=== PATIENT | female | born 1950 | race Caucasian/White ===

== ENCOUNTER → 2017-04-27 | Outpatient (CLI) | payer BC ==
--- NOTE | 2017-04-27 15:21 | XR ---
EXAMINATION TYPE: XR shoulder complete RT DATE OF EXAM: 04/27/2017 CLINICAL HISTORY: pain TECHNIQUE: Three views of the right shoulder are obtained. COMPARISON: None FINDINGS: There is no acute fracture/dislocation evident. The acromioclavicular and glenohumeral soco int spaces appear within normal limits. The visualized ribs are intact and unremarkable. IMPRESSION: 1. There is no acute fracture or dislocation. ICD 10 NO FRACTURE, INITIAL EVALUATION
--- NOTE | 2017-04-27 15:22 | XR ---
EXAMINATION TYPE: XR cervical spine comp DATE OF EXAM: 04/27/2017 CLINICAL HISTORY: pain COMPARISON: NONE TECHNIQUE: Frontal, lateral, oblique, swimmers, and open mouth view of the cervical spine are obtaine d. FINDINGS: Severe degenerative disc space narrowing and spondylosis extending from C5-6 through C7-T1. Ventral and dorsal spondylosis identified. Mild bilateral foraminal encroachment at C5-6. No evidenc e of fracture or malalignment. IMPRESSION: No acute fracture or dislocation is seen in the cervical spine. Advanced degenerative ch anges as discussed. ICD 10 NO FRACTURE, INITIAL EVALUATION
--- NOTE | 2017-05-01 09:13 | MM ---
Reason for exam: screening (asymptomatic). Last mammogram was performed 1 year and 2 months ago. History: Patient is postmenopausal. Family history of breast cancer in maternal grandmother. Physical Findings: A clinical breast exam by your physician is recommended on an annual basis and results should be correlated with mammographic findings. MG Screening Mammo w CAD Bilateral CC and MLO view(s) were taken. Prior study comparison: February 22, 2016, bilateral MG screening mammo w CAD. February 17, 2015, bilateral MG screening mammo w CAD. There are scattered fibroglandular densities. No significant changes when compared with prior studies. ASSESSMENT: Negative, BI-RAD 1 RECOMMENDATION: Routine screening mammogram of both breasts in 1 year.
== END | disposition home or self-care (01) ==
LOC: RADMAMWWP 14:48
PROVIDERS: ATTEND Internal Medicine
DX: M47.812 Spondylosis without myelopathy or radiculopathy, cervical region (principal); M25.511 Pain in right shoulder; Z12.31 Encounter for screening mammogram for malignant neoplasm of breast; M54.2 Cervicalgia
CPT/HCPCS: 72050; 73030; G0202

== ENCOUNTER → 2017-06-13 | Outpatient (CLI) | payer BC ==
--- NOTE | 2017-06-14 11:02 | ECHOF ---
Referral Reason:Edema R60.0 MEASUREMENTS -------- HEIGHT: 160.0 cm WEIGHT: 77.1 kg BP: RVIDd: 2.6 cm (< 3.3) IVSd: 0.9 cm (0.6 - 1.1) LVIDd: 3.6 cm (3.9 - 5.3) LVPWd: 0.9 cm (0.6 - 1.1) IVSs: 1.3 cm LVIDs: 2.6 cm LVPWs: 1.3 cm LA Diam: 3.1 cm (2.7 - 3.8) LAESV Index (A-L): 19.04 ml/m Ao Diam: 2.6 cm (2.0 - 3.7) AV Cusp: 1.7 cm (1.5 - 2.6) LA Diam: 3.6 cm (2.7 - 3.8) MV EXCURSION: 11.800 mm (> 18.000) MV EF SLOPE: 52 mm/s (70 - 150) EPSS: 0.2 cm MV E Dewayne: 0.60 m/s MV DecT: 317 ms MV A Dewayne: 0.80 m/s MV E/A Ratio: 0.75 RAP: 5.00 mmHg RVSP: 12.23 mmHg FINDINGS -------- Sinus rhythm. This was a technically good study. LV size, wall thickness and systolic function are normal, with an EF greater than 55%. The left mayela tricular size is normal. Overall left ventricular systolic function is normal with, an EF between 5 5 - 60 %. The right ventricle is normal in size. Normal LA size by volume 22+/-6 ml/m2. The right atrial size is normal. The aortic valve is trileaflet, and appears structurally normal. No aortic stenosis or regurgitation. Mild mitral regurgitation is present. Mild tricuspid regurgitation present. There is no evidence of pulmonary hypertension. The right v entricular systolic pressure, as measured by Doppler, is 12.23mmHg. There is no pulmonic regurgitation present. The aortic root size is normal. There is no pericardial effusion. CONCLUSIONS -------- 1. LV size, wall thickness and systolic function are normal, with an EF greater than 55%. 2. The left ventricular size is normal. 3. Overall left ventricular systolic function is normal with, an EF between 55 - 60 %. 4. The aortic valve is trileaflet, and appears structurally normal. No aortic stenosis or regurgitati on. 5. Mild mitral regurgitation is present. 6. Mild tricuspid regurgitation present. 7. There is no evidence of pulmonary hypertension. 8. The right ventricular systolic pressure, as measured by Doppler, is 12.23mmHg. 9. There is no pulmonic regurgitation present. 10. The aortic root size is normal. 11. There is no pericardial effusion. SHEET CUTTER: Tierney Ramirez RDCS
== END | disposition home or self-care (01) ==
LOC: RADECHMAIN 14:22
PROVIDERS: ATTEND Internal Medicine
DX: I08.1 Rheumatic disorders of both mitral and tricuspid valves (principal)
CPT/HCPCS: 93306

== ENCOUNTER 2018-04-11 03:42 | Emergency (ER) | payer MEDICARE, BC ==
[2018-04-11 04:00] VITALS: BP 162/92; PULSE 103; RESP 20; TEMP 98.2
[2018-04-11] MEDS ORDERED: SODIUM CHLORIDE 0.9% 1,000 ML IV STA (04:09)
[2018-04-11 04:54] LABS: Basophils # (A) 0.1 k/uL (0-0.2); Basophils % (A) 1 %; Eosinophils # (A) 0.4 k/uL (0-0.7); Eosinophils % (A) 5 %; HCT 44.5 % (34.0-46.0); HGB 14.3 gm/dL (11.4-16.0); Lymphocytes # (A) 1.6 k/uL (1.0-4.8); Lymphocytes % (A) 19 %; MCH 31.1 pg (25.0-35.0); MCV 96.9 fL (80.0-100.0); Mean Platelet Volume 6.7; Monocytes # (A) 0.5 k/uL (0-1.0); Monocytes % (A) 6 %; Neutrophils # (A) 5.7 k/uL (1.3-7.7); Neutrophils % (A) 68 %; Platelet Count 296 k/uL (150-450); RBC 4.59 m/uL (3.80-5.40); RDW 12.5 % (11.5-15.5); WBC 8.4 k/uL (3.8-10.6)
[2018-04-11 05:04] LABS: INR 1.1 (<1.2); Partial Thromboplastin Time 23.4 sec (22.0-30.0); Prothrombin Time 10.3 sec (9.0-12.0)
[2018-04-11 05:13] LABS: ALT 29 U/L (9-52); AST 23 U/L (14-36); Albumin 4.1 g/dL (3.5-5.0); Alcohol <10 mg/dL; Alkaline Phosphatase 78 U/L (38-126); Anion Gap 12 mmol/L; Blood Urea Nitrogen 31 mg/dL (7-17); Calcium 9.1 mg/dL (8.4-10.2); Carbon Dioxide 21 mmol/L (22-30); Chloride 111 mmol/L (98-107); Glucose 93 mg/dL (74-99); Potassium 4.4 mmol/L (3.5-5.1); Sodium 144 mmol/L (137-145); Total Bilirubin 0.2 mg/dL (0.2-1.3); Total Protein 6.7 g/dL (6.3-8.2)
[2018-04-11 05:28] LABS: Appearance,Urine Clear (Clear); Bilirubin,Urine Negative (Negative); Blood,Urine Negative (Negative); Color,Urine Yellow; Glucose,Urine (UA) Negative (Negative); Ketones,Urine Negative (Negative); Leukocyte Esterase,Urine Negative (Negative); Nitrite,Urine Negative (Negative); PH, Urine 5.5 (5.0-8.0); Protein,Urine Negative (Negative); Specific Gravity,Urine 1.025 (1.001-1.035); Urobilinogen,Urine <2.0 mg/dL (<2.0)
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
--- NOTE | 2018-04-11 05:37 | XR ---
EXAMINATION TYPE: XR pelvis AP view DATE OF EXAM: 04/11/2018 COMPARISON: NONE HISTORY: Pain TECHNIQUE: Single view FINDINGS: Pelvic ring is intact. Proximal femurs and hip joints appear normal. Sacroiliac joints appe ar normal. There are phleboliths in the pelvis. IMPRESSION: Negative exam. No evidence of traumatic injury.
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
[2018-04-11 05:43] LABS: Amphetamine Screen,Urine Not Detected (NotDetected); Barbiturate Screen,Urine Not Detected (NotDetected); Benzodiazepines Screen,Urine Not Detected (NotDetected); Cocaine Screen,Urine Not Detected (NotDetected); Methadone Screen, Urine Not Detected (NotDetected); Opiate Screen,Urine Not Detected (NotDetected); Oxycodone Screen, Urine Not Detected (NotDetected); Phencyclidine Screen,Urine Not Detected (NotDetected); Tricyclic Antidepressant,Urine Not Detected (NotDetected); Urn Cannabinoid Scrn Not Detected (NotDetected)
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
== END 2018-04-11 06:55 | disposition home or self-care (01) ==
LOC: EC 03:42
DX: S00.83XA Contusion of other part of head, initial encounter (principal); S10.93XA Contusion of unspecified part of neck, initial encounter; E07.9 Disorder of thyroid, unspecified; Z79.899 Other long term (current) drug therapy; Y04.2XXA Assault by strike against or bumped into by another person, initial encounter
CPT/HCPCS: 99284; 96360; 36415; 93005; 86900; 86901; 80053; 84484; 85025; 85610; 85730; 86850; 81003; 80306; 72170; 71045; 72125; 70450; 70498; G0480; Q9967; 80320

== ENCOUNTER → 2019-12-17 | Outpatient (CLI) | payer MEDICARE ==
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
== END | disposition home or self-care (01) ==
LOC: RADXRYALE 15:37
PROVIDERS: ATTEND Internal Medicine
DX: M12.851 Other specific arthropathies, not elsewhere classified, right hip (principal)
CPT/HCPCS: 73502